=== PATIENT | female | born 1975 | race Caucasian/White ===

== ENCOUNTER → 2016-10-22 | Outpatient (CLI) | payer OTHER ==
[~2016-10-22] MED LIST: NEPA0.6D OPL; PRED1SUS3 OPL
== END | disposition home or self-care (01) ==
LOC: C.PAPS 16:07
PROVIDERS: ATTEND Obstetrics & Gynecology
DX: Z12.4 Encounter for screening for malignant neoplasm of cervix (principal)

== ENCOUNTER → 2016-11-15 | Outpatient (CLI) | payer OTHER ==
--- NOTE | 2016-11-15 14:24 | MAMMOGRAPHY REPORT ---
BILATERAL DIGITAL SCREENING MAMMOGRAM TOMOSYNTHESIS WITH CAD: 11/15/2016 CLINICAL HISTORY: Routine screening. Patient has no complaints. TECHNIQUE: Breast tomosynthesis in addition to standard 2D mammography was performed. Current study was also evaluated with a Computer Aided Detection (CAD) system. COMPARISON: Comparison is made to exams dated: 11/15/2015 mammogram, 11/08/2014 mammogram, 11/03/2013 ma mmogram - [facility], and 11/15/2008 mammogram - [facility]. BREAST COMPOSITION: The tissue of both breasts is heterogeneously dense, which may obscure small mas ses. FINDINGS: No suspicious masses, calcifications, or areas of architectural distortion are noted in ei ther breast. There has been no significant interval change compared to prior exams. IMPRESSION: ACR BI-RADS CATEGORY 1: NEGATIVE There is no mammographic evidence of malignancy. A 1 year screening mammogram is recommended. The pa tient will receive written notification of the results. Approximately 10% of breast cancers are not detected with mammography. A negative mammographic report should not delay biopsy if a clinically suggestive mass is present. Wilda Alex M.D. /:11/15/2016 13:27:33 Security Assessor: Shaneka MICHELLE)(Ryanne), [facility] letter sent: Normal 1/2 BI-RADS Code: ACR BI-RADS Category 1: Negative
== END | disposition home or self-care (01) ==
LOC: C.MAMM 11:06
PROVIDERS: ATTEND Obstetrics & Gynecology
DX: Z12.31 Encounter for screening mammogram for malignant neoplasm of breast (principal)

== ENCOUNTER → 2017-01-03 | Outpatient (CLI) | payer OTHER ==
[2017-01-03 10:11] LABS: BASO % 0.4 %; BASO ABS # 0.01 K/uL (0-0.2); COMPLETE YES; EOS % 4.3 %; HEMATOCRIT 40.3 % (37-47); LYMPH % 47.4 %; MEAN CELL VOLUME 93.9 fL (80-100); MEAN CORPUSCULAR HEMOGLOBIN 32.2 pg (25-34); MEAN CORPUSCULAR HGB CONC 34.2 g/dl (32-36); MEAN PLATELET VOLUME 9.7 fL (7.4-10.4); MONO % 5.9 %; PLATELET COUNT 145 K/uL (130-400); RED BLOOD COUNT 4.29 M/uL (4.2-5.4); WHITE BLOOD COUNT 2.53 K/uL (4.8-10.8)
[2017-01-03 10:20] LABS: ALT/SGPT 30 U/L (12-78); BLOOD UREA NITROGEN 17 mg/dl (7-18); BUN/CREATININE RATIO 28.8 (10-20); CALCIUM 9.2 mg/dl (8.5-10.1); CARBON DIOXIDE 28 mmol/L (21-32); CHLORIDE 108 mmol/L (98-107); CHOLESTEROL 231 mg/dl (0-200); CREATININE 0.59 mg/dl (0.60-1.20); GLUCOSE 87 mg/dl (70-99); POTASSIUM 4.3 mmol/L (3.5-5.1); SODIUM 141 mmol/L (136-145)
[2017-01-03 10:31] LABS: ALB/GLOB RATIO 1.1 (0.9-2); ALKALINE PHOSPHATASE 53 U/L (45-117); AST/SGOT 20 U/L (15-37); CHOLESTEROL/HDL RATIO 3.8; HDL CHOLESTEROL 61 mg/dl; LDL CHOLESTEROL CALCULATED 145 mg/dl; TRIGLYCERIDES 123 mg/dl (0-150); VERY LOW DENSITY LIPOPROT CALC 25 mg/dl
== END | disposition home or self-care (01) ==
LOC: C.LAB1850 09:00
PROVIDERS: ATTEND Nurse Practitioner Adult Health
DX: Z00.00 Encounter for general adult medical examination without abnormal findings (principal); E55.9 Vitamin D deficiency, unspecified

== ENCOUNTER → 2017-09-10 | Outpatient (CLI) | payer OTHER | END | disposition home or self-care (01) | LOC: C.LABSPEC 17:46 | PROVIDERS: ATTEND Dermatology | DX: L73.9 Follicular disorder, unspecified (principal) ==

== ENCOUNTER → 2017-10-23 | Outpatient (CLI) | payer OTHER | END | disposition home or self-care (01) | LOC: C.PAPS 11:18 | PROVIDERS: ATTEND Obstetrics & Gynecology | DX: Z01.419 Encounter for gynecological examination (general) (routine) without abnormal findings (principal) ==

== ENCOUNTER 2023-10-30 19:21 | Inpatient (IN) ==
[2023-10-30 20:03] LABS: Basophils # (auto) 0.02 K/uL (0.00-0.20); Basophils % (auto) 0.4 %; Eosinophils % (auto) 2.1 %; Hematocrit (blood only) 35.4 % (37.0-47.0); Hemoglobin 12.5 g/dl (12.0-16.0); Immature Granulocytes # (auto) 0.01 K/uL (0.01-0.20); Immature Granulocytes % (auto) 0.2 %; Lymphocytes % (auto) 25.4 %; Mean Corpuscular Hgb Conc 35.3 g/dL (32.0-36.0); Mean Corpuscular Volume 90.5 fL (80.0-100.0); Mean Platelet Volume 9.1 fL (9.4-12.4); Monocytes % (auto) 10.6 %; Neutrophils # (auto) 2.89 K/uL (1.40-6.50); Neutrophils % (auto) 61.3 %; Platelet Count 194 K/uL (130-400); RDW Coefficient of Variation 11.7 % (11.5-14.5); RDW Standard Deviation 38.4 fL (36.4-46.3); Red Blood Count 3.91 M/uL (4.20-5.40); White Blood Count 4.72 K/ul (4.8-10.8)
[2023-10-30 20:15] LABS: Alanine Aminotransferase 15 U/L (7-52); Albumin Globulin Ratio 1.2 (0.9-2); Albumin Level 3.8 gm/dl (3.4-5.0); Alkaline Phosphatase 100 U/L (34-104); Anion Gap 7 (3-11); Aspartate Aminotransferase 16 U/L (13-39); BUN Creatinine Ratio 21.4 (10-20); Bilirubin,Total 0.6 mg/dl (0.2-1.0); Blood Urea Nitrogen 9 mg/dl (6-23); Calcium 9.7 mg/dl (8.6-10.3); Carbon Dioxide 26 mmol/L (21-32); Chloride 104 mmol/L (98-107); Creatinine Clr Calc Pharmacy 144.2 ml/min; Est GFR (African American) 138.5 ml/min; Est GFR (Non-African American) 119.5 ml/min; Globulin 3.3 gm/dl (2.5-4.0); Glucose 111 mg/dl (70-99(Fasting)); Potassium 3.9 mmol/L (3.5-5.1); Sodium 137 mmol/L (136-145); Total Protein 7.1 gm/dl (6.0-8.3)
--- NOTE | 2023-10-30 20:16 | Emergency Department Note ---
History of Present Illness General Chief complaint: Referred by Doctor Stated complaint: RT UNDER RIB PAIN, CT SCAN Time Seen by Provider: 10/30/23 20:00 Source: patient, family (Spouse who is at the bedside), RN notes reviewed and old records reviewed (09/18/23-outpatient BUSINESS ADMINISTRATION PROFESSOR visit) Mode of arrival: ambulatory Limitations: no limitations History of Present Illness Maximum Pain Intensity: 1 This patient is a 48-year-old female who comes in after having pain in her right chest for the last 2 days off-and-on. It is under her right breast and the ribs anteriorly hurts when she breathes or moves. No injury or trauma. She did have a laparoscopic hysterectomy done for fibroids 4 weeks ago at [place]. She says she been doing well since then. No dysuria or hematuria. No fever or chills no significant bleeding. She still has her gallbladder no nausea or vomiting. No fall or trauma and no history of PE. no pain or swelling in her legs. No rash Home Medications Medication Instructions Recorded Confirmed Type cholecalciferol (vitamin D3) 50 2,000 units PO HS 01/25/19 09/18/23 History mcg (2,000 unit) tablet cetirizine 10 mg capsule (Zyrtec) 10 mg PO DAILY PRN allergy symptoms 01/17/20 09/18/23 History docusate sodium 100 mg capsule 100 mg PO DAILY 09/20/22 09/18/23 History (Colace) sertraline 50 mg tablet 25 mg (1/2 x 50 mg) PO HS #30 tabs 01/08/23 09/18/23 Rx rosuvastatin 5 mg tablet (Crestor) 5 mg PO DAILY #30 tabs 09/16/23 09/18/23 Rx elderberry fruit 350 mg capsule mg PO DAILY 09/18/23 09/18/23 History Allergies Allergy/AdvReac Type Severity Reaction Status Date / Time No Known Allergies Allergy Verified 09/18/23 15:06 Past Med/Surg History Problem List (Updated 10/30/23 @ 23:59 by Ang Crowell MD) Not currently (Acute) Pulmonary embolism (Acute) Pulmonary embolism with infarction Bilateral pulmonary embolism Status post hysterectomy (Acute) Chest pain (Acute) Pelvic pressure in female Encounter for pre-operative examination Hyperlipidemia (Acute) Allergic conjunctivitis and rhinitis Depression pt denies Acne Encounter for annual routine gynecological examination Fibroid uterus Screening for colon cancer Vitamin D insufficiency (Acute) Surgical History History of cataract surgery bilateral Status post hysteroscopic ablation of endometrium unsuccessful "monthly menstraul cycle" Family History Father Heart disease Myocardial infarction Grandmother Uterine cancer Stroke Grandfather Diabetes Mother Hypertension Dyslipidemia Aunt Breast cancer Denies family history of Ovarian cancer Prostate cancer Colorectal cancer Social History Smoking Status: Never smoker Second Hand Exposure: No; Do You Dip or Chew Tobacco: No; Hx Alcohol Use: Yes (social) Hx Substance Use: No Preferred Language: Ukrainian 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 Beliefs That Will Affect Care: None marital status: Current Living Situation: Spouse current occupational status: other current occupation: homemaker Feels Safe at Home: Yes Childhood Exposure to Second-Hand Smoke: No Dental Care, Regularly: Yes Physical Activity Frequency: 3-4 Times per Week Seatbelt Use: always Sunscreen Use: Yes Assistive Devices: Glasses Review of Systems A total of 10 systems reviewed and were otherwise negative Physical Exam Vital Signs Vital Signs - 24 hr 10/30/23 19:30 10/30/23 22:24 Temperature 37.5 C Temperature Source Temporal Artery Scan Pulse Rate 90 89 Respiratory Rate 18 Respiratory Effort / Characteristics Non-Labored Spontaneous Respiratory Depth Normal Respiratory Pattern Regular Blood Pressure 131/72 Blood Pressure Mean 91 Blood Pressure Position Sitting Pulse Oximetry 95 Oxygen Delivery Method Room Air Sepsis Recent Fever Within 48 Hours No Sepsis New/Unexplained Change in Mental Status N/A Sepsis Action Taken by Nursing No Action Required General: Well developed well nourished middle-age female who in no acute distress, breathing comfortably on room air. Normal speech HEENT: Normal cephalic atraumatic. Pupils are equal round and reactive to light. Extraocular movements are intact. Oropharynx is pink with moist mucous membranes. No swelling of the mouth lips or tongue. Neck: Supple with a midline trachea. No meningeal signs or stiffness, no JVD or bruits. No Stridor. Chest: Clear to auscultation bilaterally. No wheezes or rhonchi. No increased work of breathing. Heart: Regular rate and rhythm without murmurs or gallops. Abdomen: Soft nontender, nondistended without rebound guarding or rigidity. Extremities: No cyanosis clubbing or edema. No calf tenderness or assymetry Spine/Back. Non tender to palpation. No CVA tenderness Skin: Good turgor without rashes. Neurologic exam: Cranial nerves two through 12 are intact. Motor and sensation are intact and symmetrical throughout. Course Administered Medications Discontinued Medications Acetaminophen (Ofirmev) 1,000 mg in 100 mls @ 400 mls/hr IV NOW STA Stop: 10/30/23 22:49 Last Infusion: 10/30/23 23:16 Dose: Infused Documented By: Admin: 10/30/23 22:59 Dose: 400 mls/hr Documented By: AMADOR Ioversol (Optiray 320 125ml) 119 ml IV ONCE ONE Stop: 10/30/23 21:25 Last Admin: 10/30/23 21:24 Dose: 119 ml Documented By: RIVER Ketorolac Tromethamine (Ketorolac Tromethamine 15 Mg/Ml Vial) 10 mg IV NOW ONE Stop: 10/30/23 22:09 Last Admin: 10/30/23 22:59 Dose: 10 mg Documented By: AMADOR Medical Decision Making Differential Diagnosis Pulmonary embolism, postop complication, gallbladder disease, pleural effusion, pneumothorax, intra-abdominal process, infection Medical Records Attestation: I reviewed the patient's medical records. Home Medications Current Medication List: was personally reviewed by me Laboratory Data Attestation: I reviewed the patient's lab results. 10/30/23 19:40 10/30/23 19:40 Lab Results 10/30/23 Range/Units 19:40 WBC 4.72 L (4.8-10.8) K/ul RBC 3.91 L (4.20-5.40) M/uL Hgb 12.5 (12.0-16.0) g/dl Hct 35.4 L (37.0-47.0) % MCV 90.5 (80.0-100.0) fL MCH 32.0 (25.0-34.0) pg MCHC 35.3 (32.0-36.0) g/dL RDW Std Deviation 38.4 (36.4-46.3) fL RDW Coeff of Jaswant 11.7 (11.5-14.5) % Plt Count 194 (130-400) K/uL MPV 9.1 L (9.4-12.4) fL Immature Gran % (Auto) 0.2 % Neut % (Auto) 61.3 % Lymph % (Auto) 25.4 % Terry % (Auto) 10.6 % Eos % (Auto) 2.1 % Baso % (Auto) 0.4 % Neut # (Auto) 2.89 (1.40-6.50) K/uL Lymph # (Auto) 1.20 (1.20-3.40) K/uL Terry # (Auto) 0.50 (0.11-0.59) K/uL Eos # (Auto) 0.10 (0.00-0.50) K/uL Baso # (Auto) 0.02 (0.00-0.20) K/uL Immature Gran # (Auto) 0.01 (0.01-0.20) K/uL PT 10.3 (9.0-12.0) Seconds INR 0.9 (0.9-1.1) APTT 29 (21-31) Seconds PTT Ratio 1.1 Heparin Anti-Xa, Unfract < 0.10 L (0.3-0.7) IU/ml Sodium 137 (136-145) mmol/L Potassium 3.9 (3.5-5.1) mmol/L Chloride 104 (98-107) mmol/L Carbon Dioxide 26 (21-32) mmol/L Anion Gap 7 (3-11) BUN 9 (6-23) mg/dl Creatinine 0.42 L (0.6-1.2) mg/dl Est Cr Clr Drug Dosing 144.2 ml/min Est GFR ( Amer) 138.5 ml/min Est GFR (Non-Af Amer) 119.5 ml/min BUN/Creatinine Ratio 21.4 H (10-20) Glucose 111 H (70-99(Fasting)) mg/dl Calcium 9.7 (8.6-10.3) mg/dl Total Bilirubin 0.6 (0.2-1.0) mg/dl AST 16 (13-39) U/L ALT 15 (7-52) U/L Alkaline Phosphatase 100 (34-104) U/L Troponin I High Sens < 2.3 (0-14) pg/ml Total Protein 7.1 (6.0-8.3) gm/dl Albumin 3.8 (3.4-5.0) gm/dl Globulin 3.3 (2.5-4.0) gm/dl Albumin/Globulin Ratio 1.2 (0.9-2) Imaging Data Attestation: I personally reviewed and interpreted this imaging study as follows: My Impression: CT angiography chestPE study there is no saddle emboli but there are bilateral pulmonary emboli more so on the right Radiologist's Impression: Chest CTA 10/30/23 19:38 CR Exam(s): CTA CHEST IV Amt: 119 ml optiray 320 EXAM: CT Angiography Chest With Intravenous Contrast CLINICAL HISTORY: Reason for exam: EVAL PE, PAIN UNDER RIGHT RIBS, RECENT HYSTERECTOMY. TECHNIQUE: Axial computed tomographic angiography images of the chest with intravenous contrast. CTDI is 37 mGy and DLP is 1069.02 mGy-cm. Automated exposure control was utilized for the study. A dose lowering technique was utilized adhering to the principles of ALARA. MIP reconstructed images were created and reviewed. COMPARISON: No relevant prior studies available. FINDINGS: Pulmonary arteries: Bilateral pulmonary emboli in the segmental and subsegmental lower lobe branches. Consolidations at the lung bases, concerning for pulmonary infarcts, RIGHT greater than LEFT. Aorta: No acute findings. No thoracic aortic aneurysm. Lungs: Unremarkable. No mass. No consolidation. Pleural space: Trace RIGHT pleural effusion. No pneumothorax. Heart: Unremarkable. No cardiomegaly. No significant pericardial effusion. No CT evidence of RIGHT heart strain. Bones/joints: No acute fracture. No dislocation. Soft tissues: Unremarkable. Lymph nodes: Unremarkable. No enlarged lymph nodes. IMPRESSION: Bilateral pulmonary emboli in the segmental and subsegmental lower lobe branches. Consolidations at the lung bases, concerning for pulmonary infarcts, RIGHT greater than LEFT. Communications: Call Doctor Other Electronically signed by: Nadeem Wolff MD 10/30/23 21:58 PM Abdomen/Pelvis CT 10/30/23 20:08 Exam(s): CT ABDOMEN + PELVIS With Contrast IV Amt: 119 ml optiray 320 EXAM: CT Abdomen and Pelvis With Intravenous Contrast CLINICAL HISTORY: Reason for exam: rt upper abd /chetst pain s/p hyst 4 weeks. TECHNIQUE: Axial computed tomography images of the abdomen and pelvis with intravenous contrast. CTDI is 37 mGy and DLP is 1069.02 mGy-cm. Automated exposure control was utilized for the study. A dose lowering technique was utilized adhering to the principles of ALARA. CONTRAST: Patient received 119 ml optiray 320 of IV contrast COMPARISON: No relevant prior studies available. FINDINGS: ABDOMEN: Liver: Unremarkable. No mass. Gallbladder and bile ducts: Unremarkable. No calcified stones. No ductal dilation. Pancreas: Unremarkable. No mass. No ductal dilation. Spleen: Unremarkable. No splenomegaly. Adrenals: Unremarkable. No mass. Kidneys and ureters: Unremarkable. No solid mass. No hydronephrosis. Stomach and bowel: Unremarkable. No obstruction. No mucosal thickening. PELVIS: Appendix: No findings to suggest acute appendicitis. Bladder: Decompressed urinary bladder. Reproductive: Hysterectomy. ABDOMEN and PELVIS: Intraperitoneal space: Unremarkable. No free air. No significant fluid collection. Bones/joints: No acute fracture. No dislocation. Soft tissues: Unremarkable. Vasculature: Unremarkable. No abdominal aortic aneurysm. Lymph nodes: Unremarkable. No enlarged lymph nodes. IMPRESSION: No acute findings in the abdomen or pelvis. Hysterectomy. Electronically signed by: Nadeem Wolff MD 10/30/23 22:08 PM ECG Data Attestation: I personally reviewed and interpreted this ECG as follows: Indication: + chest pain Rate (beats per minute): 81 Rhythm: + normal sinus ECG Intervals/blocks: + Normal QRS, + Normal QT and + Normal IN ECG Hope: + Normal ECG ST segments: + Normal ST segments ECG Findings: + Other (Nonspecific T wave) Comparison ECG Date: no prior available MDM Narrative This patient is a 48-year-old female who comes in after having pain in her right ribs she has had this for 2 days she had a hysterectomy 4 weeks ago has been healing well from this she is otherwise healthy. On exam the abdomen is benign her incisions are laparoscopic and healing well. EKG shows no ischemic changes or ectopy. A full workup was done to evaluate for PE but also scan through the abdomen to ensure there is nothing under the diaphragm or intra-abdominal he that is causing her symptoms. When I push over the gallbladder does not seem to be significantly tender. Blood work was unremarkable she is no white count or fever distress infection her troponin is normal she is noticing of electrolyte or metabolic abnormality. Her CT angiography does show bilateral PEs with some pulmonary infarcts. She had the symptoms for a couple of days. She has no calf tenderness or swelling. CAT scan of the abdomen and pelvis does not show any acute abnormalities. I did discuss case at length with Dr. Betancourt , who saw the patient in the ER. In terms of anticoagulation, he wanted me to give her standard heparin without a bolus given the fact she had recent surgery I did order this to help get this started. The patient also had received Toradol 10 mg IV earlier in her visit. The patient will be admitted for further inpatient treatment evaluate for pulmonary embolism. Continuous cardiac monitoring call orders placed in the EMR for continuous cardiac monitoring: Upon my evaluation, she was found to be in normal sinus rhythm rate of 77 Impression & Plan Pulmonary embolism, Chest pain, Status post hysterectomy, Not currently Discharge Plan Visit Data Chief Complaint: Referred by Doctor Stated Complaint: RT UNDER RIB PAIN, CT SCAN ED Provider: Ang Crowell Discharge Problem: Pulmonary embolism, Chest pain, Status post hysterectomy, Not currently Patient Disposition: Admitted As Inpatient Discharge Instructions Interventions: ED Discharge Assessment Last Done: 10/30/23 23:11 Discharge Problem: Pulmonary embolism Qualifiers: Pulmonary embolism type: unspecified Chronicity: acute Acute cor pulmonale presence: unspecified Qualified Code(s): I26.99 - Other pulmonary embolism without acute cor pulmonale Chest pain Qualifiers: Chest pain type: unspecified Qualified Code(s): R07.9 - Chest pain, unspecified
[2023-10-30 20:20] LABS: Troponin I High Sensitivity < 2.3 pg/ml (0-14)
[2023-10-30 20:31] LABS: INR 0.9 (0.9-1.1); Partial Thromboplastin Ratio 1.1; Partial Thromboplastin Time 29 Seconds (21-31); Prothrombin Time 10.3 Seconds (9.0-12.0)
[2023-10-30] MEDS: OPTIRAY 320 125ml IV ONE (21:24)
--- NOTE | 2023-10-30 21:58 | CT Scan Report ---
Exam(s): CTA CHEST IV Amt: 119 ml optiray 320 EXAM: CT Angiography Chest With Intravenous Contrast CLINICAL HISTORY: Reason for exam: EVAL PE, PAIN UNDER RIGHT RIBS, RECENT HYSTERECTOMY. TECHNIQUE: Axial computed tomographic angiography images of the chest with intravenous contrast. CTDI is 37 mGy and DLP is 1069.02 mGy-cm. Automated exposure control was utilized for the study. A dose lowering technique was utilized adhering to the principles of ALARA. MIP reconstructed images were created and reviewed. COMPARISON: No relevant prior studies available. FINDINGS: Pulmonary arteries: Bilateral pulmonary emboli in the segmental and subsegmental lower lobe branches. Consolidations at the lung bases, concerning for pulmonary infarcts, RIGHT greater than LEFT. Aorta: No acute findings. No thoracic aortic aneurysm. Lungs: Unremarkable. No mass. No consolidation. Pleural space: Trace RIGHT pleural effusion. No pneumothorax. Heart: Unremarkable. No cardiomegaly. No significant pericardial effusion. No CT evidence of RIGHT heart strain. Bones/joints: No acute fracture. No dislocation. Soft tissues: Unremarkable. Lymph nodes: Unremarkable. No enlarged lymph nodes. IMPRESSION: Bilateral pulmonary emboli in the segmental and subsegmental lower lobe branches. Consolidations at the lung bases, concerning for pulmonary infarcts, RIGHT greater than LEFT. Communications: Call Doctor Other Electronically signed by: Nadeem Wolff MD 10/30/23 21:58 PM
--- NOTE | 2023-10-30 22:09 | CT Scan Report ---
Exam(s): CT ABDOMEN + PELVIS With Contrast IV Amt: 119 ml optiray 320 EXAM: CT Abdomen and Pelvis With Intravenous Contrast CLINICAL HISTORY: Reason for exam: rt upper abd /chetst pain s/p hyst 4 weeks. TECHNIQUE: Axial computed tomography images of the abdomen and pelvis with intravenous contrast. CTDI is 37 mGy and DLP is 1069.02 mGy-cm. Automated exposure control was utilized for the study. A dose lowering technique was utilized adhering to the principles of ALARA. CONTRAST: Patient received 119 ml optiray 320 of IV contrast COMPARISON: No relevant prior studies available. FINDINGS: ABDOMEN: Liver: Unremarkable. No mass. Gallbladder and bile ducts: Unremarkable. No calcified stones. No ductal dilation. Pancreas: Unremarkable. No mass. No ductal dilation. Spleen: Unremarkable. No splenomegaly. Adrenals: Unremarkable. No mass. Kidneys and ureters: Unremarkable. No solid mass. No hydronephrosis. Stomach and bowel: Unremarkable. No obstruction. No mucosal thickening. PELVIS: Appendix: No findings to suggest acute appendicitis. Bladder: Decompressed urinary bladder. Reproductive: Hysterectomy. ABDOMEN and PELVIS: Intraperitoneal space: Unremarkable. No free air. No significant fluid collection. Bones/joints: No acute fracture. No dislocation. Soft tissues: Unremarkable. Vasculature: Unremarkable. No abdominal aortic aneurysm. Lymph nodes: Unremarkable. No enlarged lymph nodes. IMPRESSION: No acute findings in the abdomen or pelvis. Hysterectomy. Electronically signed by: Nadeem Wolff MD 10/30/23 22:08 PM
--- NOTE | 2023-10-30 22:41 | History & Physical Report ---
Date of Service October 30, 2023 Assessment & Plan (1) Bilateral pulmonary embolism: (2) Pulmonary embolism with infarction: (3) Status post hysterectomy: (4) Depression: (5) Hyperlipidemia: Plan Bilateral pulmonary embolism/pulmonary infarcts at the bases- As noted on CTA PE protocol study Venous Dopplers ordered and pending Hypercoagulable workup ordered Starting heparin drip standard dose per protocol Acetaminophen 1 g IV now Acetaminophen 650 mg by mouth every 6 hours as needed for mild pain or fever starting in the a.m. Tramadol 50 mg by mouth every 4 hours as needed for moderate pain Status post hysterectomy- For 4 weeks ago CTA abdomen pelvis negative other than for hysterectomy Depression- Continue sertraline History of Present Illness Chief Complaint: The patient presents to the emergency department with severe right lower chest pain over the past 2 days, in particular under her right breast, that is worse with taking a deep breath or when she moves Primary Care Provider: Boris Lane MD The patient is a 48-year-old female with a past medical history including hysterectomy 4 weeks ago, hyperlipidemia, depression and vitamin D deficiency. She underwent hysterectomy 4 weeks ago, having tolerated the procedure well, has been resting more than usual at home, and noted acute onset of pain under her right breast that worsens with breathing and activity this persisted for 2 days. She denies any sick exposures. Allergies Allergy/AdvReac Type Severity Reaction Status Date / Time No Known Allergies Allergy Verified 09/18/23 15:06 Home Medications Medication Instructions Recorded Confirmed Type cholecalciferol (vitamin D3) 50 2,000 units PO HS 01/25/19 09/18/23 History mcg (2,000 unit) tablet cetirizine 10 mg capsule (Zyrtec) 10 mg PO DAILY PRN allergy symptoms 01/17/20 09/18/23 History docusate sodium 100 mg capsule 100 mg PO DAILY 09/20/22 09/18/23 History (Colace) sertraline 50 mg tablet 25 mg (1/2 x 50 mg) PO HS #30 tabs 01/08/23 09/18/23 Rx rosuvastatin 5 mg tablet (Crestor) 5 mg PO DAILY #30 tabs 09/16/23 09/18/23 Rx elderberry fruit 350 mg capsule mg PO DAILY 09/18/23 09/18/23 History Past Med/Surg History Problem List (Updated 10/30/23 @ 23:40 by Leif Le MD) Pulmonary embolism with infarction Bilateral pulmonary embolism Status post hysterectomy (Acute) Chest pain (Acute) Pelvic pressure in female Encounter for pre-operative examination Hyperlipidemia (Acute) Allergic conjunctivitis and rhinitis Depression pt denies Acne Encounter for annual routine gynecological examination Fibroid uterus Screening for colon cancer Vitamin D insufficiency (Acute) Surgical History History of cataract surgery bilateral Status post hysteroscopic ablation of endometrium unsuccessful "monthly menstraul cycle" Family History Father Heart disease Myocardial infarction Grandmother Uterine cancer Stroke Grandfather Diabetes Mother Hypertension Dyslipidemia Aunt Breast cancer Denies family history of Ovarian cancer Prostate cancer Colorectal cancer Social History Smoking Status: Never smoker Second Hand Exposure: No; Do You Dip or Chew Tobacco: No; Hx Alcohol Use: Yes (social) Hx Substance Use: No Preferred Language: Danish 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 Beliefs That Will Affect Care: None marital status: Current Living Situation: Spouse current occupational status: other current occupation: homemaker Feels Safe at Home: Yes Childhood Exposure to Second-Hand Smoke: No Dental Care, Regularly: Yes Physical Activity Frequency: 3-4 Times per Week Seatbelt Use: always Sunscreen Use: Yes Assistive Devices: Glasses Review of Systems Review of Systems: The patient denies palpitations, cough, lower extremity swelling, sore throat, fevers, chills, sweats, weight change, fatigue, nausea, vomiting, diarrhea , constipation, abdominal pain, pelvic pain, blood in urine or stool, dysuria, urinary frequency or urgency, lightheadedness, dizziness, headache, memory loss, loss of consciousness, rash, abnormal bruising or bleeding, imbalance, focal or generalized weakness, numbness or tingling in arms or legs, generalized arthralgias or myalgias, neck pain, or night sweats. The review of systems is otherwise negative other than for that already noted above, and at least 10 systems have been reviewed. Physical Exam Physical Exam: The patient is awake, alert and oriented 3, well developed and well nourished, normocephalic and atraumatic, lying in bed and in no acute distress while sitting still HEENT--PERRL, EOMI, mucous membranes and oropharynx normal Neck--supple. No JVD. No bruits. Thyroid normal, trachea midline, no adenopathy. Heart--normal S1 and S2. No murmurs, rubs or gallops. Lungs--clear bilaterally, no respiratory distress, no accessory muscle use. Abdomen--normal bowel sounds and soft. Nontender. Nondistended, no hernias or masses, no organomegaly. Extremities--no cyanosis or clubbing. No edema. There are good distal pulses b/l. Dermatologic--normal skin turgor, normal color, no abnormal lymph nodes, no rash. Neurologic--cranial nerves II through XII grossly intact. Rheumatologic--limited by right-sided anterior and lower chest pain Psychiatric--normal affect. Results & Data Results & Data Vital Signs (Past 12 Hours) Vital Signs Temp Pulse Resp BP Pulse Ox O2 Del Method 10/30/23 19:30 37.5 C 90 18 131/72 95 Room Air Laboratory Results Laboratory Results WBC 4.72 K/ul (4.8-10.8) L 10/30/23 19:40 RBC 3.91 M/uL (4.20-5.40) L 10/30/23 19:40 Hgb 12.5 g/dl (12.0-16.0) 10/30/23 19:40 Hct 35.4 % (37.0-47.0) L 10/30/23 19:40 MCV 90.5 fL (80.0-100.0) 10/30/23 19:40 MCH 32.0 pg (25.0-34.0) 10/30/23 19:40 MCHC 35.3 g/dL (32.0-36.0) 10/30/23 19:40 RDW Std Deviation 38.4 fL (36.4-46.3) 10/30/23 19:40 RDW Coeff of Jaswant 11.7 % (11.5-14.5) 10/30/23 19:40 Plt Count 194 K/uL (130-400) 10/30/23 19:40 MPV 9.1 fL (9.4-12.4) L 10/30/23 19:40 Immature Gran % (Auto) 0.2 % 10/30/23 19:40 Neut % (Auto) 61.3 % 10/30/23 19:40 Lymph % (Auto) 25.4 % 10/30/23 19:40 Simpson % (Auto) 10.6 % 10/30/23 19:40 Eos % (Auto) 2.1 % 10/30/23 19:40 Baso % (Auto) 0.4 % 10/30/23 19:40 Neut # (Auto) 2.89 K/uL (1.40-6.50) 10/30/23 19:40 Lymph # (Auto) 1.20 K/uL (1.20-3.40) 10/30/23 19:40 Simpson # (Auto) 0.50 K/uL (0.11-0.59) 10/30/23 19:40 Eos # (Auto) 0.10 K/uL (0.00-0.50) 10/30/23 19:40 Baso # (Auto) 0.02 K/uL (0.00-0.20) 10/30/23 19:40 Immature Gran # (Auto) 0.01 K/uL (0.01-0.20) 10/30/23 19:40 PT 10.3 Seconds (9.0-12.0) 10/30/23 19:40 INR 0.9 (0.9-1.1) 10/30/23 19:40 APTT 29 Seconds (21-31) 10/30/23 19:40 PTT Ratio 1.1 10/30/23 19:40 Sodium 137 mmol/L (136-145) 10/30/23 19:40 Potassium 3.9 mmol/L (3.5-5.1) 10/30/23 19:40 Chloride 104 mmol/L (98-107) 10/30/23 19:40 Carbon Dioxide 26 mmol/L (21-32) 10/30/23 19:40 Anion Gap 7 (3-11) 10/30/23 19:40 BUN 9 mg/dl (6-23) 10/30/23 19:40 Creatinine 0.42 mg/dl (0.6-1.2) L 10/30/23 19:40 Est Cr Clr Drug Dosing 144.2 ml/min 10/30/23 19:40 Est GFR ( Amer) 138.5 ml/min 10/30/23 19:40 Est GFR (Non-Af Amer) 119.5 ml/min 10/30/23 19:40 BUN/Creatinine Ratio 21.4 (10-20) H 10/30/23 19:40 Glucose 111 mg/dl (70-99(Fasting)) H 10/30/23 19:40 Calcium 9.7 mg/dl (8.6-10.3) 10/30/23 19:40 Total Bilirubin 0.6 mg/dl (0.2-1.0) 10/30/23 19:40 AST 16 U/L (13-39) 10/30/23 19:40 ALT 15 U/L (7-52) 10/30/23 19:40 Alkaline Phosphatase 100 U/L (34-104) 10/30/23 19:40 Troponin I High Sens < 2.3 pg/ml (0-14) 10/30/23 19:40 Total Protein 7.1 gm/dl (6.0-8.3) 10/30/23 19:40 Albumin 3.8 gm/dl (3.4-5.0) 10/30/23 19:40 Globulin 3.3 gm/dl (2.5-4.0) 10/30/23 19:40 Albumin/Globulin Ratio 1.2 (0.9-2) 10/30/23 19:40 Impressions Chest CTA 10/30/23 19:38 CR Exam(s): CTA CHEST IV Amt: 119 ml optiray 320 EXAM: CT Angiography Chest With Intravenous Contrast CLINICAL HISTORY: Reason for exam: EVAL PE, PAIN UNDER RIGHT RIBS, RECENT HYSTERECTOMY. TECHNIQUE: Axial computed tomographic angiography images of the chest with intravenous contrast. CTDI is 37 mGy and DLP is 1069.02 mGy-cm. Automated exposure control was utilized for the study. A dose lowering technique was utilized adhering to the principles of ALARA. MIP reconstructed images were created and reviewed. COMPARISON: No relevant prior studies available. FINDINGS: Pulmonary arteries: Bilateral pulmonary emboli in the segmental and subsegmental lower lobe branches. Consolidations at the lung bases, concerning for pulmonary infarcts, RIGHT greater than LEFT. Aorta: No acute findings. No thoracic aortic aneurysm. Lungs: Unremarkable. No mass. No consolidation. Pleural space: Trace RIGHT pleural effusion. No pneumothorax. Heart: Unremarkable. No cardiomegaly. No significant pericardial effusion. No CT evidence of RIGHT heart strain. Bones/joints: No acute fracture. No dislocation. Soft tissues: Unremarkable. Lymph nodes: Unremarkable. No enlarged lymph nodes. IMPRESSION: Bilateral pulmonary emboli in the segmental and subsegmental lower lobe branches. Consolidations at the lung bases, concerning for pulmonary infarcts, RIGHT greater than LEFT. Communications: Call Doctor Other Electronically signed by: Nadeem Wolff MD 10/30/23 21:58 PM Abdomen/Pelvis CT 10/30/23 20:08 Exam(s): CT ABDOMEN + PELVIS With Contrast IV Amt: 119 ml optiray 320 EXAM: CT Abdomen and Pelvis With Intravenous Contrast CLINICAL HISTORY: Reason for exam: rt upper abd /chetst pain s/p hyst 4 weeks. TECHNIQUE: Axial computed tomography images of the abdomen and pelvis with intravenous contrast. CTDI is 37 mGy and DLP is 1069.02 mGy-cm. Automated exposure control was utilized for the study. A dose lowering technique was utilized adhering to the principles of ALARA. CONTRAST: Patient received 119 ml optiray 320 of IV contrast COMPARISON: No relevant prior studies available. FINDINGS: ABDOMEN: Liver: Unremarkable. No mass. Gallbladder and bile ducts: Unremarkable. No calcified stones. No ductal dilation. Pancreas: Unremarkable. No mass. No ductal dilation. Spleen: Unremarkable. No splenomegaly. Adrenals: Unremarkable. No mass. Kidneys and ureters: Unremarkable. No solid mass. No hydronephrosis. Stomach and bowel: Unremarkable. No obstruction. No mucosal thickening. PELVIS: Appendix: No findings to suggest acute appendicitis. Bladder: Decompressed urinary bladder. Reproductive: Hysterectomy. ABDOMEN and PELVIS: Intraperitoneal space: Unremarkable. No free air. No significant fluid collection. Bones/joints: No acute fracture. No dislocation. Soft tissues: Unremarkable. Vasculature: Unremarkable. No abdominal aortic aneurysm. Lymph nodes: Unremarkable. No enlarged lymph nodes. IMPRESSION: No acute findings in the abdomen or pelvis. Hysterectomy. Electronically signed by: Nadeem Wolff MD 10/30/23 22:08 PM Code Status & VTE Plan Code Status Full code VTE Prophylaxis Plan VTE Prophylaxis will be ordered: Yes PG Care Time/CCT Total # of Minutes Spent Total Time Spent with Patient: Total time spent is greater than 50% in coordination of care (as documented) at patient's floor/unit and/or counseling patient: Coding Level of Care Code 20209 INT INP/OBS CARE MIN Diagnoses Bilateral pulmonary embolism I26.99 Pulmonary embolism with infarction I26.99 Status post hysterectomy Z90.710 Depression F32.9 Hyperlipidemia E78.5
[2023-10-30] MEDS: KETOROLAC TROMETHAMINE 15 MG/ML VIAL IV ONE (22:59)
[2023-10-30] MEDS: ACETAMINOPHEN 1,000 MG/100 ML VIAL IV STA (22:59)
[2023-10-30] MEDS ORDERED: traMADol HCL 50 MG TABLET PO PRN (23:09)
[2023-10-30] MEDS ORDERED: ONDANSETRON INJ 2 MG/ML 2 ML VIAL IV PRN (23:09)
[2023-10-30] MEDS ORDERED: CETIRIZINE HCL 10 MG TABLET PO PRN (23:09)
[2023-10-30 23:48] LABS: ANTI-Xa, UFH(UnfractionatedHep < 0.10 IU/ml (0.3-0.7)
[2023-10-31] MEDS: SERTRALINE HCL 50 MG TABLET PO ONE (00:01)
[2023-10-31] MEDS: ROSUVASTATIN CALCIUM 5 MG TAB PO STA (00:01)
[2023-10-31] MEDS: HEPARIN SODIUM/DEXTROSE 25,000 UNITS/500 ML BAG IV SCH (00:02)
[2023-10-31] MEDS: Heparin IV Adult Wt-Based Standard *NO* INITIAL Bolus Protocol IV STA (00:34)
--- NOTE | 2023-10-31 03:44 | Ultrasound Report ---
Exam(s): US VENOUS BILATERAL LOWER EXTREMITIES EXAM: US Duplex Bilateral Lower Extremities Veins CLINICAL HISTORY: PE's. TECHNIQUE: Real-time duplex ultrasound scan of the bilateral lower extremity veins integrating B-mode two-dimensional vascular structure, Doppler spectral analysis, color flow Doppler imaging and compression. COMPARISON: No relevant prior studies available. FINDINGS: Right deep veins: Unremarkable. No Deep vein thrombosis in the right common femoral, femoral, proximal deep femoral or popliteal veins. The veins demonstrate normal color flow, are normally compressible, with normal phasic flow and/or augmentation response. Right superficial veins: Unremarkable. No thrombus in the visualized right great saphenous vein. Left deep veins: Unremarkable. No Deep vein thrombosis in the left common femoral, femoral, proximal deep femoral or popliteal veins. The veins demonstrate normal color flow, are normally compressible, with normal phasic flow and/or augmentation response. Left superficial veins: Unremarkable. No thrombus in the visualized left great saphenous vein. Soft tissues: No acute findings. No popliteal cyst. IMPRESSION: No deep vein thrombosis of either lower extremity. Electronically signed by: Cate Akhtar MD 10/31/23 03:42 AM
[2023-10-31] MEDS: ACETAMINOPHEN 325 MG TAB PO PRN (05:04)
[2023-10-31 07:13] LABS: Basophils # (auto) 0.02 K/uL (0.00-0.20); Basophils % (auto) 0.4 %; Eosinophils # (auto) 0.07 K/uL (0.00-0.50); Eosinophils % (auto) 1.5 %; Hematocrit (blood only) 32.2 % (37.0-47.0); Hemoglobin 11.3 g/dl (12.0-16.0); Immature Granulocytes # (auto) 0.01 K/uL (0.01-0.20); Immature Granulocytes % (auto) 0.2 %; Lymphocytes # (auto) 1.13 K/uL (1.20-3.40); Lymphocytes % (auto) 24.7 %; Mean Corpuscular Hgb Conc 35.1 g/dL (32.0-36.0); Mean Corpuscular Volume 91.2 fL (80.0-100.0); Mean Platelet Volume 9.4 fL (9.4-12.4); Monocytes % (auto) 10.9 %; Neutrophils # (auto) 2.84 K/uL (1.40-6.50); Neutrophils % (auto) 62.3 %; Platelet Count 165 K/uL (130-400); RDW Coefficient of Variation 11.7 % (11.5-14.5); RDW Standard Deviation 38.5 fL (36.4-46.3); Red Blood Count 3.53 M/uL (4.20-5.40); White Blood Count 4.57 K/ul (4.8-10.8)
[2023-10-31 07:29] LABS: Albumin Level 3.5 gm/dl (3.4-5.0); BUN Creatinine Ratio 19.4 (10-20); Calcium 9.1 mg/dl (8.6-10.3); Creatinine Clr Calc Pharmacy 168.2 ml/min; Est GFR (African American) 145.7 ml/min; Est GFR (Non-African American) 125.7 ml/min; Magnesium 2.1 mg/dl (1.7-2.4); Phosphorus 3.6 mg/dl (2.5-4.9); Potassium 3.7 mmol/L (3.5-5.1)
[2023-10-31 07:37] LABS: ANTI-Xa, UFH(UnfractionatedHep 0.22 IU/ml (0.3-0.7)
[2023-10-31 07:43] LABS: Partial Thromboplastin Ratio 1.3; Partial Thromboplastin Time 36 Seconds (21-31); Prothrombin Time 10.8 Seconds (9.0-12.0)
[2023-10-31] MEDS: DOCUSATE SODIUM 100 MG CAP PO SCH (08:10)
--- NOTE | 2023-10-31 10:33 | Electrocardiogram Report ---
Test Reason : Blood Pressure : / mmHG Vent. Rate : 081 BPM Atrial Rate : 081 BPM P-R Int : 136 ms QRS Dur : 076 ms QT Int : 366 ms P-R-T Axes : 010 045 021 degrees QTc Int : 425 ms Normal sinus rhythm Normal ECG No previous ECGs available Confirmed by Damon Valladares ([id number]) on 10/31/2023 10:33:09 AM Referred By: Gaby Mg Confirmed By:Naeem Valladares
--- NOTE | 2023-10-31 10:47 | Discharge Summary ---
Date of Service October 31, 2023 Admission HPI Per Admitting Provider The patient is a 48-year-old female with a past medical history including hysterectomy 4 weeks ago, hyperlipidemia, depression and vitamin D deficiency. She underwent hysterectomy 4 weeks ago, having tolerated the procedure well, has been resting more than usual at home, and noted acute onset of pain under her right breast that worsens with breathing and activity this persisted for 2 days. She denies any sick exposures. Admission Exam Per Admitting Provider The patient is awake, alert and oriented 3, well developed and well nourished, normocephalic and atraumatic, lying in bed and in no acute distress while sitting still HEENT--PERRL, EOMI, mucous membranes and oropharynx normal Neck--supple. No JVD. No bruits. Thyroid normal, trachea midline, no adenopathy. Heart--normal S1 and S2. No murmurs, rubs or gallops. Lungs--clear bilaterally, no respiratory distress, no accessory muscle use. Abdomen--normal bowel sounds and soft. Nontender. Nondistended, no hernias or masses, no organomegaly. Extremities--no cyanosis or clubbing. No edema. There are good distal pulses b/l. Dermatologic--normal skin turgor, normal color, no abnormal lymph nodes, no rash. Neurologic--cranial nerves II through XII grossly intact. Rheumatologic--limited by right-sided anterior and lower chest pain Psychiatric--normal affect. Principal Diagnosis Bilateral PE Discharge Exam Constitutional WD/WN, vitals as above Respiratory normal respiratory effort, lungs clear to auscultation (mildly impaired excursion due to pain ) Cardiovascular RRR, no murmur, no edema Skin no rashes, warm and dry Psychiatric A+Ox3, euthymic affect Discharge Data Allergies Allergy/AdvReac Type Severity Reaction Status Date / Time No Known Allergies Allergy Verified 10/31/23 10:17 Consultations 10/30/23 22:15 ED Decision to Admit Stat Ordered Studies 10/30/23 19:38 CT angio chest PE protocol Stat 10/30/23 20:08 CT abd pelvis IV con only Stat 10/30/23 22:08 US venous doppler LE BI Stat Hospital Course (1) Bilateral pulmonary embolism: (2) Pulmonary embolism with infarction: (3) Status post hysterectomy: (4) Depression: (5) Hyperlipidemia: Plan Bilateral pulmonary embolism/pulmonary infarcts: Bilateral PE/pulmonary infarcts noted on CTA Bilateral Venous Doppler negative Hypercoagulable workup ordered, follow up on lab results in the outpatient setting TTE largely unremarkable apart from mild to moderate tricuspid regurgitation, no evidence of right heart strain Initially started on Heparin drip, converted to Eliquis on discharge Continue Tylenol for pain control, short course of Tramadol sent to pharmacy for breakthrough pain Status post hysterectomy: Hysterectomy 4 weeks ago, CTA abdomen pelvis negative other than for hysterectomy Depression: Continue sertraline HLD: Continue statin therapy Total Time Total Time Spent Total Time Spent (In Minutes): see attending attestation Discharge Plan Discharge Items Patient Disposition: Home - Self-Care Reason For Visit: PE's/PI's Discharge Diagnosis: Bilateral PE/pulmonary infarcts Activity: Resume your previous activity Non-emergency contact: Primary Care Provider Call non-emergency contact if: you have any medication questions, your symptoms worsen and your pain is not controlled Follow-up/Referrals: Boris Lane MD [Primary Care Provider] - 11/07/23 10:30 am (with WALLY Ware ) Diet: Regular Addtl Attending Provider Instructions: You were admitted to the hospital for bilateral pulmonary emboli. For this, you were started on a blood thinner. Upon discharge, you will need to continue to take an oral anticoagulant (blood thinner) called Eliquis. Please take this medication as directed below. You may continue to take Tylenol as needed for pain. Moving forward, you should try to avoid NSAIDs (ie. Ibuprofen, Naproxen etc.) as these can further thin you blood on top of the Eliquis. At the time of your discharge, you echocardiogram has not yet been read. We will include these results in your discharge summary, which will be sent to your primary care physician. Similarly, your PCP can also follow up on your lab results when they come back. A discharge summary will be sent to your primary care physician to ensure continuity of care. Please bring this discharge summary with you to your next office appointment so that your provider can review it at that time. Medications: Your medication list has been reviewed and reconciled upon discharge to ensure accuracy and continuity of care. An updated list of all your medications is included with your hospital discharge paperwork. Please review this list closely and make note of any changes to your medications. New Medications: Eliquis: Please take 10mg (2 tabs) twice daily for 1 week. Thereafter, please take 5 mg (1 tab) twice daily. Your primary care doctor can help determine how long you ultimately need to take this medication. Follow up appointments: - Make a follow up appointment with your PCP within the next week. It is very important that you follow up with them shortly after discharge from the hospital. - Keep all of your follow up appointments as already scheduled. If you cannot make an appointment, notify your provider. CONTACT YOUR PRIMARY CARE PROVIDER if you experience any of the following: - Difficulty following your treatment plan - Difficulty taking any of your medications CALL 911 OR GO TO THE EMERGENCY DEPARTMENT if you experience any of the following: - Sudden, severe abdominal pain or nausea/vomiting - Severe chest pain or chest pain that radiates to your jaw or arm - Sudden, severe shortness of breath or difficulty breathing Pending Studies at Discharge: No Stand-Alone Forms: My [facility] Treater, Smoking Cessation Medications and DC Order Prescriptions: New Eliquis 5 mg tablet 5 mg PO BID Qty: 74 0RF Rx Instructions: Please take 10mg (2 tabs) twice daily for 1 week. Thereafter, take 5mg (1 tab) twice daily thereafter. tramadol 50 mg tablet 50 mg PO Q12H PRN (Reason: pain) Qty: 7 0RF Continued sertraline 50 mg tablet 25 mg PO HS Qty: 30 8RF rosuvastatin [Crestor] 5 mg tablet 5 mg PO DAILY Qty: 30 2RF elderberry fruit 350 mg capsule 350 mg PO DAILY cholecalciferol (vitamin D3) 2,000 unit tablet 2,000 units PO HS docusate sodium [Colace] 100 mg capsule 100 mg PO DAILY ascorbic acid (vitamin C) [Vitamin C] 250 mg Tablet 0 mg PO DAILY Rx Instructions: Pt unsure of strength at this date/time. loratadine 10 mg Capsule 10 mg PO DAILY Discharge Orders: Discharge Order (Routine); Ordered 10/31/23 Ordered By: Kale Mendiola Admission Data Admit Date/Time: 10/30/23 22:40 Attending Provider: Damon Banegas Admit Provider: Leif Le Primary Care Provider: Boris Lane Other Providers: Leif Le Other Interventions: Discharge Summary Assessment (RN) Last Done: 10/31/23 13:05 Supervising Physician Co-Signing Physician Notes Attending attestation Pt seen and examined in concert with Dr. Mendiola. In agreement with the documented findings as noted in the resident documentation with any exceptions or additions as noted here. Adequate pain control with PO APAP without need for tramadol at this time. On examination, S1/S2 nl RRR no MCG. CTAB. Abd NT/ND BS+ve Pulmonary embolism, likely provoked postoperatively - transitioned to DOAC and extensive review of likely course of illness as well as medication risks and benefits with spouse and . Hypercoag w/u pending, to be discussed at outpatient follow up with determination for course of anticoagulation. Additional tramadol provided for pain control if needed. Else see resident documentation as noted. Total attending physician time spent with this patient's care on the day of discharge: 40 minutes. Resident Activity Tracking Resident Involvement: Resident Care Provided Care Provided: Adult Hospital Medicine
--- NOTE | 2023-10-31 12:48 | XCELERA ---
[id number]
[2023-10-31] MEDS: APIXABAN 5 MG TABLET PO ONE (14:21)
[2023-10-31] MEDS ORDERED: ROSUVASTATIN CALCIUM 5 MG TAB PO SCH (21:00)
[2023-10-31] MEDS ORDERED: SERTRALINE HCL 50 MG TABLET PO SCH (21:00)
[2023-10-31] MEDS ORDERED: CHOLECALCIFEROL 25 MCG (1000 UNITS) TAB PO SCH ×2 (21:00)
== END 2023-10-31 14:50 | disposition home or self-care (01) | DRG 176 ==
LOC: ED 19:21 → SUATTDRO 22:40 → EDINP 22:40 → 2S 23:11
DX: E78.5 Hyperlipidemia, unspecified; I26.99 Other pulmonary embolism without acute cor pulmonale; F32.A Depression, unspecified; E55.9 Vitamin D deficiency, unspecified; Z79.899 Other long term (current) drug therapy